=== PATIENT | male | born 1930 | race Caucasian/White ===

== ENCOUNTER 2018-06-05 23:24 | Emergency (ER) | payer MEDICARE, MEDICAID ==
[~2018-06-05] VITALS: Ht 162.6 cm; Wt 100.0 kg
[2018-06-06 04:10] VITALS: BP 150/76
== END 2018-06-06 04:17 | disposition home or self-care (01) ==
LOC: ER 23:24
DX: E11.649 Type 2 diabetes mellitus with hypoglycemia without coma (principal)
CPT/HCPCS: 99283